=== PATIENT | female | born 1980 | race American Indian/Alaskan Native ===

== ENCOUNTER 2016-12-02 19:46 | Emergency (ER) | payer BC ==
[2016-12-02 20:27] VITALS: BP 121/84; PULSE 95; RESP 18; TEMP 102; O2SAT 95
[2016-12-02] MEDS ORDERED: Dexamethasone 4 mg/1 ml IVP STA (20:58)
[2016-12-02] MEDS ORDERED: Dexamethasone 4 mg/1 ml ONE (21:04)
--- NOTE | 2016-12-02 21:25 | C.PDOC ---
History Of Present Illness 36 y/o female presents to ED with complaints of sore throat starting yesterday with associated fever. Patient denies sob, chest pain, n/v/d or any other complaints at this time. Time Seen by Provider: 12/02/16 20:52 Chief Complaint (Nursing): ENT Problem History Per: Patient History/Exam Limitations: None Onset/Duration Of Symptoms: Days Current Symptoms Are (Timing): Still Present Past Medical History Reviewed: Historical Data, Nursing Documentation, Vital Signs Vital Signs: Last Vital Signs Temp 102 F H 12/02/16 20:24 Pulse 95 H 12/02/16 20:24 Resp 18 12/02/16 20:24 BP 121/84 12/02/16 20:24 Pulse Ox 95 12/02/16 21:44 Surgical History: (about 1 month ago) Family History: States: Unknown Family Hx - Social History Hx Tobacco Use: No Hx Alcohol Use: Yes Hx Substance Use: No - Immunization History Hx Tetanus Toxoid Vaccination: Yes Hx Influenza Vaccination: Yes Hx Pneumococcal Vaccination: No Review Of Systems Except As Marked, All Systems Reviewed And Found Negative. Constitutional: Negative for: Fever, Chills ENT: Positive for: Throat Swelling Cardiovascular: Negative for: Chest Pain Respiratory: Negative for: Shortness of Breath Gastrointestinal: Negative for: Nausea, Vomiting, Diarrhea Skin: Negative for: Rash Physical Exam - Physical Exam Appears: Non-toxic, No Acute Distress Skin: Normal Color, Warm Head: Atraumatic, Normacephalic Eye(s): bilateral: Normal Inspection, EOMI Nose: Normal Oral Mucosa: Moist Throat: No Drooling, Other (Tonsillar swelling and exudate, +erythema, uvula midline) Neck: Normal ROM, Supple Lymphatic: Other (Lymphadenopathy) Chest: Symmetrical Cardiovascular: Rhythm Regular Respiratory: Normal Breath Sounds, No Accessory Muscle Use, No Rales, No Rhonchi , No Wheezing Extremity: Capillary Refill (<2 seconds) Neurological/Psych: Oriented x3 ED Course And Treatment O2 Sat by Pulse Oximetry: 95 (RA) Reevaluation Time: 21:10 (Patient is resting comfortably, tolerating PO, and is afebrile at this time. Clinical signs and symptoms are not suggestive of sepsis , meningitis, UTI, pneumonia, intra-abdominal pathology, or cellulitis. Patient will be discharged home, and instructed to follow up with his/her physician in 1-2 days without fail. Patient was instructed to return for any worsening symptoms, persistent fever, neck pain, rash, abdominal pain, or vomiting.) Reassessment Condition: Improved Disposition - Disposition Referrals: Israel Quintana MD [Primary Care Provider] - Disposition: HOME/ ROUTINE Disposition Time: 21:24 Condition: STABLE Additional Instructions: Gargle with warm salt water. Follow up with primary medical doctor in 1-3 days without fail for further evaluation. Take medications as prescribed. Return to the emergency department at any time if symptoms persist or worsen. Prescriptions: Amoxicillin 875 mg PO BID #20 tablet Ibuprofen [Motrin] 600 mg PO Q6 PRN #20 tab PRN Reason: Pain, Mild (1-3) Instructions: Tonsillitis (ED) - Clinical Impression Clinical Impression: Tonsillitis with exudate - Scribe Statement The provider has reviewed the documentation as recorded by the Lico Friedman All medical record entries made by the Lico were at my direction and personally dictated by me. I have reviewed the chart and agree that the record accurately reflects my personal performance of the history, physical exam, medical decision making, and the department course for this patient. I have also personally directed, reviewed, and agree with the discharge instructions and disposition.
== END 2016-12-02 21:35 | disposition home or self-care (01) ==
LOC: C.ER 19:46 → SUPCPDRO 19:46 → C.ER 21:35
DX: J03.90 Acute tonsillitis, unspecified (principal); Z72.0 Tobacco use
CPT/HCPCS: 96374; 99282; J1100